=== PATIENT | female | born 1980 | race Two or more races ===

== ENCOUNTER 2018-11-14 20:46 | Emergency (ER) | payer OTHER ==
[~2018-11-14] VITALS: Ht 172.7 cm; Wt 81.6 kg
[2018-11-14] MEDS ORDERED: [UNRECOGNIZED DRUG - OTHER] (21:29)
== END 2018-11-15 02:00 | disposition home or self-care (01) ==
LOC: ER 20:46 → EDBD 21:04 → ER 21:04
DX: R42 Dizziness and giddiness (principal)